=== PATIENT | male | born 1970 | race American Indian/Alaskan Native ===

== ENCOUNTER 2020-11-24 13:03 | Emergency (ER) | payer BC ==
[2020-11-24 13:37] VITALS: BP 105/69
--- NOTE | 2020-11-24 14:55 | Event Note ---
ED Screening Note Date of service: 11/24/20 Time: 14:54 ED Screening Note: 50-year-old -Bur[place] male presents to the emergency room for 1 week of bloody stools. Patient does admit to some fatigue. Denies any tarry stool. No nausea no vomiting no abdominal pain. This initial assessment/diagnostic orders/clinical plan/treatment(s) is/are subject to change based on patients health status, clinical progression and re- assessment by fellow clinical providers in the ED. Further treatment and workup at subsequent clinical providers discretion. Patient/guardian urged not to elope from the ED as their condition may be serious if not clinically assessed and managed. Initial orders include:
[2020-11-24 15:27] LABS: Basophils % (Auto) 0.8 % (0.0-1.8); Eosinophils # (Auto) 0.2 K/mm3 (0.0-0.4); Eosinophils % (Auto) 4.4 % (0.0-4.3); Lymphocytes # (Auto) 1.6 K/mm3 (1.2-5.4); Lymphocytes % (Auto) 29.9 % (13.4-35.0); Mean Corpuscular HGB Conc 29 % (32-34); Monocytes # (Auto) 0.6 K/mm3 (0.0-0.8); Monocytes % (Auto) 11.2 % (0.0-7.3); Platelet Count 293 K/mm3 (140-440); Red Cell Distribution Width 17.9 % (13.2-15.2)
[2020-11-24 15:30] LABS: Hematocrit 27.6 % (35.5-45.6); Hemoglobin 8.1 gm/dl (11.8-15.2); INR 1.03 (0.87-1.13); Mean Corpuscular Volume 69 fl (84-94); Partial Thromboplastin Time 26.1 Sec. (24.2-36.6)
[2020-11-24 15:44] LABS: Alanine Aminotransferase 13 units/L (7-56); Albumin 4.3 g/dL (3.9-5); BUN/Creatinine Ratio 13; Blood Urea Nitrogen 13 mg/dL (9-20); Calcium 8.9 mg/dL (8.4-10.2); Hemolysis Index 2
--- NOTE | 2020-11-24 16:11 | Emergency Department Report ---
HPI - General Chief Complaint: GI Bleed Time Seen by Provider: 11/24/20 14:54 - HPI HPI: This is a 50-year-old -Serbian male presents to the emergency department with a complaint of seeing blood in his stool over the past few days. Overall he says this has actually been going on for the past few months but it has been intermittent and restarted a few days ago. He denies any rectal or abdominal pain. Patient says that he has not had any constipation or difficulty with his bowel movements, but he did try a laxative once or twice. He denies any past medical history but appears to have a psychiatric history of schizophrenia. He does not have a primary care physician. No recent travel or sick contacts at home. ED Past Medical Hx - Past Medical History Hx Psychiatric Treatment: Yes (schizophrenia) - Surgical History Past Surgical History?: No - Social History Smoking Status: Current Every Day Smoker Substance Use Type: None - Medications Home Medications: Home Medications Medication Instructions Recorded Confirmed Last Taken Type risperiDONE [Risperdal] 4 mg PO BID 08/01/14 04/10/16 08/01/14 History Cyclobenzaprine [Flexeril 10mg] 10 mg PO TID PRN #14 tablet 08/02/14 04/10/16 Unknown Rx Ibuprofen [Motrin] 600 mg PO Q8H PRN #30 tablet 08/02/14 04/10/16 Unknown Rx Amoxicillin [Trimox CAP] 500 mg PO Q8H #30 capsule 04/10/16 Unknown Rx Docusate Sodium [Colace] 100 mg PO BID PRN #20 capsule 11/24/20 Unknown Rx Ferrous Sulfate [Feosol] 325 mg PO BID #60 tablet 11/24/20 Unknown Rx ED Review of Systems ROS: Stated complaint: BLOOD IN STOOL Other details as noted in HPI Comment: All other systems reviewed and negative Constitutional: denies: chills, fever Eyes: denies: eye pain, vision change ENT: denies: ear pain, throat pain Respiratory: denies: cough, shortness of breath Cardiovascular: denies: chest pain, palpitations Gastrointestinal: other (rectal bleeding). denies: abdominal pain, vomiting Genitourinary: denies: dysuria, discharge Musculoskeletal: denies: back pain, arthralgia Skin: denies: rash, lesions Neurological: denies: headache, weakness Physical Exam - Physical Exam Vital Signs: Vital Signs 11/24/20 13:36 Temperature 97.6 F Pulse Rate 71 Respiratory 16 Rate Blood Pressure 105/69 O2 Sat by Pulse 100 Oximetry Physical Exam: GENERAL: The patient is well-developed well-nourished. HENT: Normocephalic. Atraumatic. Patient has moist mucous membranes. EYES: Extraocular motions are intact. NECK: Supple. Trachea is midline. CHEST/LUNGS: Clear to auscultation. There is no respiratory distress noted. HEART/CARDIOVASCULAR: Regular. There is no tachycardia. There is no murmur. ABDOMEN: Abdomen is soft, nontender. Patient has normal bowel sounds. SKIN: Skin is warm and dry. NEURO: The patient is awake, alert, and oriented. The patient is cooperative. Normal speech. MUSCULOSKELETAL: There is no tenderness or deformity. There is no limitation range of motion. RECTAL: No gross blood seen. No external hemorrhoids or lesions. Stool is negative on guaiac testing. ED Course Vital Signs 11/24/20 13:36 Temperature 97.6 F Pulse Rate 71 Respiratory 16 Rate Blood Pressure 105/69 O2 Sat by Pulse 100 Oximetry - Reevaluation(s) Reevaluation #1: 11/24/20 18:18 Chaperoned by ER morgue technician Carole. ED Medical Decision Making - Lab Data Result diagrams: 11/24/20 15:04 11/24/20 15:04 - Medical Decision Making This patient presents with the complaint of seeing blood in his stool. He denies any abdominal or rectal pains. Rectal examination does not show any external hemorrhoid or lesions, gross blood, and stool obtained from rectal examination was negative on guaiac testing. The patient does have some anemia with a hemoglobin of 8.1 but he does not appear to have symptomatic anemia and does not appear to require a blood transfusion at this time. The rest of the patient's labs have been unremarkable. Vital signs reassuring throughout his ED course including being afebrile. For all these reasons patient appears safe for discharge home at this time. He has been given some iron supplementation for the anemia and some Colace as the iron can be constipating. He has also been given an outpatient referral for gastroenterology. He will return to the emergency department with any worsening of his symptoms or with any acute distress. Critical Care Time: No Critical care attestation.: If time is entered above; I have spent that time in minutes in the direct care of this critically ill patient, excluding procedure time. ED Disposition Clinical Impression: Rectal bleeding Anemia Qualifiers: Anemia type: unspecified type Qualified Code(s): D64.9 - Anemia, unspecified Disposition: DC-01 TO HOME OR SELFCARE Is pt being admited?: No Condition: Stable Instructions: Rectal Bleeding Additional Instructions: Your hemoglobin today was 8.1 which shows that you have anemia. I am starting you on iron supplementation. The iron supplements may be constipating and therefore I will give you a stool softener as well. I am giving you a referral for [facility] to follow-up regarding the rectal bleeding. Return to the emergency department with any worsening of your symptoms, new or concerning symptoms not addressed during this current emergency department visit, or with any acute distress. Prescriptions: Docusate Sodium [Colace] 100 mg PO BID PRN #20 capsule PRN Reason: Constipation Ferrous Sulfate [Feosol] 325 mg PO BID #60 tablet Referrals: PRIMARY CAREMD [Primary Care Provider] - 3-5 Days [facility] [Provider Group] - 3-5 Days [facility] [Provider Group] - 3-5 Days Forms: Work/School Release Form(ED) Time of Disposition: 16:21
== END 2020-11-24 16:30 | disposition home or self-care (01) ==
LOC: ED 13:03
DX: D64.9 Anemia, unspecified (principal); K62.5 Hemorrhage of anus and rectum; F20.9 Schizophrenia, unspecified; F17.200 Nicotine dependence, unspecified, uncomplicated; Z79.1 Long term (current) use of non-steroidal anti-inflammatories (NSAID); Z79.2 Long term (current) use of antibiotics; Z79.899 Other long term (current) drug therapy; Z88.8 Allergy status to other drugs, medicaments and biological substances
CPT/HCPCS: 36415; 80053; 85025; 85610; 85730; 86850; 86900; 86901; 99283